=== PATIENT | male | born 1990 | race Caucasian/White ===

== ENCOUNTER 2017-04-20 20:45 | Emergency (ER) | payer OTHER ==
[2017-04-20 20:55] VITALS: BP 135/71
--- NOTE | 2017-04-20 21:24 | UC ---
Lower Extremity/Ankle HPI - HPI Summary HPI Summary: ONE WEEK PAINFUL LUMP BEHIND LEFT KNEE. PAIN RADIATES TO LEFT CALF. HEAVY DAILY SMOKER. RECENT HEEL SURGERY 8MONTHS AGO, HAS BEEN BED RIDDEN SINCE SURGERY. 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 Onset/Duration: Gradual Onset, Lasting Weeks, Worse Since - DAILY Severity Initially: Moderate Severity Currently: Moderate Pain Intensity: 8 Pain Scale Used: 0-10 Numeric Aggravating Factor(s): Standing, Ambulation Able to Bear Weight: Yes - Risk Factors Gout Risk Factors: Negative DVT Risk Factors: Smoking, Recent Period Of Bedrest, Recent Surgery Septic Arthritis Risk Factor: Negative - Allergies/Home Medications Allergies/Adverse Reactions: Allergies Allergy/AdvReac Type Severity Reaction Status Date / Time No Known Allergies Allergy Verified 04/20/17 20:55 Home Medications: Home Medications Ibuprofen TAB* [Advil TAB*] 200 mg PO Q6H PRN 04/20/17 [History Confirmed ] Penicillin VK TAB* [Penicillin VK 250 mg Tab*] 500 mg PO TID 04/20/17 [History Confirmed 04/20/17] PMH/Surg Hx/FS Hx/Imm Hx Previously Healthy: Yes - Surgical History Surgical History: Yes Surgery Procedure, Year, and Place: right heel surgery 2016. hernia repair - Family History Known Family History: Negative: Blood Disorder - Social History Alcohol Use: Occasionally Substance Use Type: None Smoking Status (MU): Heavy Every Day Tobacco Smoker Type: Cigarettes Amount Used/How Often: 1ppd - Immunization History Most Recent Influenza Vaccination: no Review of Systems Constitutional: Negative Skin: Negative Eyes: Negative ENT: Negative Respiratory: Negative Cardiovascular: Negative Gastrointestinal: Negative Genitourinary: Negative Motor: Negative Neurovascular: Negative Musculoskeletal: Arthralgia, Calf Tenderness, Edema - LEFT POPLITIEAL FOSSA, Myalgia Neurological: Negative Psychological: Negative Is Patient Immunocompromised?: No All Other Systems Reviewed And Are Negative: Yes Physical Exam Triage Information Reviewed: Yes Appearance: Well-Appearing, No Pain Distress, Well-Nourished Vital Signs: Initial Vital Signs Temp 98.1 F 04/20/17 20:49 Pulse 76 04/20/17 20:49 Resp 16 04/20/17 20:49 BP 135/71 04/20/17 20:49 Pulse Ox 100 04/20/17 20:49 Vital Signs Reviewed: Yes Eye Exam: Normal ENT Exam: Normal ENT: Positive: Normal ENT inspection, TMs normal Dental Exam: Normal Neck exam: Normal Respiratory Exam: Normal Respiratory: Positive: Chest non-tender, Lungs clear, Normal breath sounds, No respiratory distress, No accessory muscle use Cardiovascular Exam: Normal Cardiovascular: Positive: RRR, No Murmur, Pulses Normal, Brisk Capillary Refill Abdominal Exam: Normal Musculoskeletal: Positive: Strength Intact, ROM Intact, Edema @ - LEFT POPLITEAL FOSSA Neurological Exam: Normal Psychological Exam: Normal Psychological: Positive: Normal Response To Family Skin Exam: Normal Lower Extremity Course/Dx - Differential Dx/Diagnosis Differential Diagnosis/HQI/PQRI: DVT, Fracture (Closed), Sprain, Strain Provider Diagnoses: LEFT LEG PAIN - Physician Notifications Time Discussed With Above Provider: 21:05 - [facility] Instructed by Provider To: MD Will See In ED Discharge - Discharge Plan Condition: Stable Disposition: OTHER Discharge Disposition Comment: ADVISED TO GO TO ED, REFUSED AMBULANCE Patient Education Materials: Leg Pain (ED) Referrals: [facility] PHYSICIAN REFERRAL [Outside] No Primary Care Phys,NOPCP [Medical Doctor] - Additional Instructions: YOU HAVE REFUSED THE OFFER OF AMBULANCE TRANSPORT AND HAVE ELECTED TO GO TO THE EMERGENCY DEPARTMENT BY PRIVATE CAR. YOU ARE ADVISED TO PROCEED SAFELY, BUT DIRECTLY TO THE EMERGENCY DEPARTMENT FOR CONTINUED EVALUATION.
== END 2017-04-20 21:13 ==
LOC: UCCORT 20:45
DX: M25.562 Pain in left knee (principal); F17.210 Nicotine dependence, cigarettes, uncomplicated
CPT/HCPCS: 99212; G0463

== ENCOUNTER 2017-05-31 18:11 | Inpatient (IN) | payer OTHER ==
[2017-05-31 19:47] LABS: Hematocrit 44 % (42-52); Mean Corpuscular HGB Conc 34 g/dl (31-36); Mean Corpuscular Hemoglobin 29 pg (27-31); Mean Corpuscular Volume 85 fL (80-94); Mean Platelet Volume 7 um3 (7.4-10.4); Red Blood Count 5.12 10^6/ul (4.0-5.4); Red Cell Distribution Width 14 % (10.5-15); White Blood Count 7.5 10^3/ul (3.5-10.8)
[2017-05-31 20:03] LABS: ALT 9 U/L (7-52); AST 13 U/L (13-39); Albumin 4.3 g/dL (3.2-5.2); Alkaline Phosphatase 118 U/L (34-104); Anion Gap 6 mmol/L (2-11); BUN/Creatinine Ratio 18.1 (8-20); Blood Urea Nitrogen 17 mg/dL (6-24); CO2 Carbon Dioxide 26 mmol/L (22-32); Calcium 9.1 mg/dL (8.6-10.3); Chloride 107 mmol/L (101-111); EGFR African American 123.8 (>60); EGFR Non-African American 96.3 (>60); Globulin 2.5 g/dL (2-4); Glucose 112 mg/dL (70-100); Potassium 3.7 mmol/L (3.5-5.0); Sodium 139 mmol/L (133-145); Total Protein 6.8 g/dL (6.4-8.9)
[2017-05-31 20:36] LABS: Acetaminophen < 15 mcg/mL; Alcohol < 10 mg/dL (<10); Salicylate < 2.50 mg/dL (<30)
[2017-05-31] MEDS ORDERED: Nicotine Inhaler* 10 MG AMP INH ONE (20:40)
[2017-05-31] MEDS ORDERED: Mouth Piece, Nicotine* 1 EACH CARTRIDGE ONE (20:42)
[2017-05-31] MEDS ORDERED: Nicotine Inhaler* 10 MG AMP ONE (20:42)
[2017-05-31 20:54] LABS: Urine Bacteria Absent (Absent); Urine Bilirubin Negative (Negative); Urine Glucose Negative (Negative); Urine Nitrite Negative (Negative)
[2017-05-31 21:07] LABS: Benzodiazepine Urine Screen None Detected (None Detect)
--- NOTE | 2017-05-31 21:17 | ED ---
Markell Kurtz Alfonso, scribed for Usha Carlson MD on 05/31/17 at 1846 . Psychiatric Complaint - HPI Summary HPI Summary: This patient is a 27 year old M presenting to [facility] accompanied by family with a chief complaint of SI since a few days ago. He states "my family thinks I'm crazy." The patient rates the pain 10/10 in severity. Symptoms aggravated by nothing. Symptoms alleviated by nothing. Patient reports previous suicide attempts, paranoia, and depression. Patient denies a suicide plan. - History Of Current Complaint Chief Complaint: EDMentalHealth Time Seen by Provider: 05/31/17 18:30 Hx Obtained From: Patient Onset/Duration: Gradual Onset, Lasting Days, Still Present Timing: Constant Character: Depressed Aggravating Factor(s): Nothing Alleviating Factor(s): Nothing Associated Signs And Symptoms: Positive: Paranoid Behavior Has Suicidal: Reports: Thoughts, Has Prior Attempt(s). Denies: With A Plan - Allergies/Home Medications Allergies/Adverse Reactions: Allergies Allergy/AdvReac Type Severity Reaction Status Date / Time No Known Allergies Allergy Verified 04/20/17 20:55 PMH/Surg Hx/FS Hx/Imm Hx Opthamlomology History: Denies: Hx Legally Blind EENT History: Denies: Hx Deafness - Surgical History Surgery Procedure, Year, and Place: right heel surgery 2016. hernia repair Infectious Disease History: No Infectious Disease History: Denies: Traveled Outside the [place] in Last 30 Days - Family History Known Family History: Negative: Blood Disorder - Social History Lives: With Family - and homeless Alcohol Use: Occasionally Hx Substance Use: Yes Substance Use Type: Reports: Heroin Smoking Status (MU): Heavy Every Day Tobacco Smoker Type: Cigarettes Amount Used/How Often: 1ppd Review of Systems Neurological: Other - SI, previous SI attempt; negative SI plan Psychological: Other - paranoia Positive: Depressed All Other Systems Reviewed And Are Negative: Yes Physical Exam - Summary Physical Exam Summary: General: Well appearing, no pain distress Skin: Warm, Skin Color Reflects Adequate Perfusion, Dry Eyes: EOMI, RANDY ENT: Pharynx normal, TMs normal Neck: Supple, nontender Respiratory: CTA, breath sounds present, no rhonchi, no wheezes, no rales Cardiovascular: RRR, no murmur, no rub, no gallop Abdomen: Soft, nontender, Non-distended, no guarding, no rebound Bowel: Present Musculoskeletal: MALI, No edema Neuro: Sensory/motor intact, A&Ox3, CN intact 2-12 Psych: Flat affect Triage Information Reviewed: Yes Vital Signs On Initial Exam: Initial Vitals Temp Pulse Resp BP Pulse Ox 97.7 F 83 18 135/89 100 05/31/17 18:18 05/31/17 18:18 05/31/17 18:18 05/31/17 18:18 05/31/17 18:18 Vital Signs Reviewed: Yes Diagnostics - Vital Signs Vital Signs Temp Pulse Resp BP Pulse Ox 05/31/17 18:18 97.7 F 83 18 135/89 100 - Laboratory Lab Results: Lab Results 05/31/17 05/31/17 05/31/17 Range/Units 19:40 19:40 20:29 WBC 7.5 (3.5-10.8) 10^3/ul RBC 5.12 (4.0-5.4) 10^6/ul Hgb 15.0 (14.0-18.0) g/dl Hct 44 (42-52) % MCV 85 (80-94) fL MCH 29 (27-31) pg MCHC 34 (31-36) g/dl RDW 14 (10.5-15) % Plt Count 253 (150-450) 10^3/ul MPV 7 L (7.4-10.4) um3 Neut % (Auto) 73.5 (38-83) % Lymph % (Auto) 15.2 L (25-47) % [place] % (Auto) 9.4 H (1-9) % Eos % (Auto) 0.9 (0-6) % Baso % (Auto) 1.0 (0-2) % Absolute Neuts (auto) 5.5 (1.5-7.7) 10^3/ul Absolute Lymphs (auto) 1.1 (1.0-4.8) 10^3/ul Absolute Monos (auto) 0.7 (0-0.8) 10^3/ul Absolute Eos (auto) 0.1 (0-0.6) 10^3/ul Absolute Basos (auto) 0.1 (0-0.2) 10^3/ul Absolute Nucleated RBC 0 10^3/ul Nucleated RBC % 0 Sodium 139 (133-145) mmol/L Potassium 3.7 (3.5-5.0) mmol/L Chloride 107 (101-111) mmol/L Carbon Dioxide 26 (22-32) mmol/L Anion Gap 6 (2-11) mmol/L BUN 17 (6-24) mg/dL Creatinine 0.94 (0.67-1.17) mg/dL Est GFR ( Amer) 123.8 (>60) Est GFR (Non-Af Amer) 96.3 (>60) BUN/Creatinine Ratio 18.1 (8-20) Glucose 112 H (70-100) mg/dL Calcium 9.1 (8.6-10.3) mg/dL Total Bilirubin 0.90 (0.2-1.0) mg/dL AST 13 (13-39) U/L ALT 9 (7-52) U/L Alkaline Phosphatase 118 H (34-104) U/L Total Protein 6.8 (6.4-8.9) g/dL Albumin 4.3 (3.2-5.2) g/dL Globulin 2.5 (2-4) g/dL Albumin/Globulin Ratio 1.7 (1-3) TSH Pending Urine Color Yellow Urine Appearance Cloudy Urine pH 5.0 (5-9) Ur Specific [place] 1.029 (1.010-1.030) Urine Protein 1+(30 mg/dl) H (Negative) Urine Ketones 1+ H (Negative) Urine Blood Negative (Negative) Urine Nitrate Negative (Negative) Urine Bilirubin Negative (Negative) Urine Urobilinogen Negative (Negative) Ur Leukocyte Esterase Negative (Negative) Urine WBC (Auto) Trace(0-5/hpf) (Absent) Urine RBC (Auto) Absent (Absent) Ur Squamous Epith Cells Present H (Absent) Urine Bacteria Absent (Absent) Urine Glucose Negative (Negative) Salicylates < 2.50 (<30) mg/dL Acetaminophen < 15 mcg/mL Serum Alcohol < 10 (<10) mg/dL Result Diagrams: 05/31/17 19:40 05/31/17 19:40 Lab Statement: Any lab studies that have been ordered have been reviewed, and results considered in the medical decision making process. Course/Dx - Course Course Of Treatment: 27 yo who describes multiple years of feeling depressed and suicidal with poly substance abuse brought in by his mother for evaluation. pt is awaiting mental health eval - Differential Dx/Clinical Impression Provider Diagnosis: Depression Discharge - Discharge Plan Condition: Stable Disposition: OTHER Discharge Disposition Comment: to be determined The documentation as recorded by the Markell keyes Alfonso accurately reflects the service I personally performed and the decisions made by me, Usha Carlson MD.
[2017-05-31 21:20] LABS: TSH (Thyroid Stimulating Horm) 0.37 mcIU/mL (0.34-5.60)
[2017-05-31] MEDS ORDERED: LORazepam TAB(*) 1 MG PO ONE (21:53)
[2017-06-01] MEDS ORDERED: Al Hydrox/Mg Hydrox/Simet LIQ* 30 ML UDC PO PRN (05:03)
[2017-06-01] MEDS ORDERED: Acetaminophen TAB* 325 MG PO PRN (05:03)
[2017-06-01] MEDS ORDERED: Haloperidol TAB* 5 MG PO PRN (05:04)
[2017-06-01] MEDS ORDERED: Mouth Piece, Nicotine* 1 EACH CARTRIDGE INH SCH (05:04)
[2017-06-01] MEDS ORDERED: Nicotine Inhaler* 10 MG AMP INH PRN (05:04)
[2017-06-01] MEDS: Vitamin THERAPEUTIC TAB PO SCH (09:27)
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
[2017-06-01 16:17] LABS: HDL Cholesterol 43.3 mg/dL
[2017-06-01] MEDS ORDERED: Methocarbamol TAB* 500 MG PO ONE (17:19)
[2017-06-01] MEDS ORDERED: cloNIDine TAB* 0.1 MG PO PRN (17:20)
[2017-06-01] MEDS ORDERED: cloNIDine TAB* 0.1 MG PO ONE (17:20)
[2017-06-01] MEDS ORDERED: Ibuprofen TAB* 600 MG PO PRN (17:24)
[2017-06-01] MEDS ORDERED: Ibuprofen TAB* 600 MG PO ONE (17:24)
[2017-06-01] MEDS ORDERED: Loperamide CAP* 2 MG PO PRN (17:25)
[2017-06-01] MEDS ORDERED: Ondansetron TAB* 4 MG PO PRN (17:26)
[2017-06-01] MEDS: cloNIDine TAB* 0.1 MG PO ONE ×3 (18:24→18:33)
[2017-06-02] MEDS: Vitamin THERAPEUTIC TAB PO SCH (08:48)
--- NOTE | 2017-06-02 12:05 | PN ---
Subjective - Subjective Service Type: [id number] Hosp care 15 min low complexity Subjective: Patient continued to spend majority of day in his room. Patient has attended some groups. Patient reports ongoing depressed mood and anxiety. He reports ongoing opioid w/d symptoms including sweats, chills, muscle spasm and body ache. Patient reports continued increased sleep. He reports all depressive symptoms noted on admission continue w/o improvement. Patient informed this provider would start anti-depressant Effexor XR 75mg po qam for depressive symptoms and anxiety. Patient denies SI/HI and AH/VH. Objective - Appearance Appearance: Thin Framed, Other - emaciated Dysmorphic Features: No Hygiene: Dirty Grooming: Disheveled - Behavior Psychomotor Activities: Normal Exhibits Abnormal Movement: No - Attitude and Relatedness Attitude and Relatedness: Cooperative Eye Contact: Fair - Speech Quality: Unpressured Latencies: Normal Quantity: Appropriate - Mood Patient's Decription of Mood: "depressed" - Affect Observed Affect: Depressed Affect Consistent with: Dysphoria - Thought Process Patient's Thought Process: Coherent Thought Content: No Passive Wish, No Suicidal Planning, No Homicidal Ideation, No Paranoid Ideation - Sensorium Experiencing Hallucinations: No, Sensorium is Clear Type of Hallucinations: Visual: No, Auditory: No, Command: No - Level of Consciousness Level of Consciousness: Alert Orientation: Yes Intact, Yes Orientated to Time, Yes Orientated to Place, Yes Orientated to Person - Impulse Control Impulse Control: Impaired - Insight and Judgement Insight and Judgement: Poor - Group Participation Particating in Group Activities: No - Medication Management Medication Management Adherence: Yes Assessment - Assessment Merits Inpatient Hospitalization: For Immediate Safety, For Stabilization Inpatient DSM-IV Dx: ASSESSMENT: . 1. Opioid induced d/o disorder. 2. MDD by Hx. 3. Opioid use d/o, severe. 4. Cannabis use d/o, severe. 5. Methamphetamine use d/o, severe. 6. Cocaine use d/o, severe Plan - Plan Treatment Plan: Name: SALLY SÁNCHEZ Birthdate: 1990 [id number] PLAN: ------ 1. Continue admission to [facility] for safety and symptom mx. 2. Will continue patient on Opioid w/d symptom PRNs: -Methocarbamol 750mg po TID PRN muscles spasm -Clonidine 0.1mg po BID PRN sweats/chills with PARAMETERS ordered -Loperamide 2mg po TID PRN after each loose stools -Ibuprofen 600mg po q6hr PRN pain -Zofran 4mg po BID PRN nausea 3. Patient gives informed consent to start Effexor XR 75mg po qam for anxiety and depressive symptoms. 4. Obtain collateral from family and outpt providers. 5. Patient to participate in milieu activities and groups. Continued Medication Management: Start Medication Medications: Current Medications Acetaminophen (Tylenol Tab*) 650 mg PO Q4H PRN PRN Reason: PAIN or TEMP > 101 F Al Hydrox/Mg Hydrox/Simethicone (Maalox Plus*) 30 ml PO Q4H PRN PRN Reason: INDIGESTION Clonidine HCl (Catapres Tab*) 0.1 mg PO BID PRN PRN Reason: sweats, chills, htn, tachycard Device (Nicotine Mouth Piece*) 1 each INH .[facility] Haloperidol (Haldol Tab*) 5 mg PO Q6H PRN PRN Reason: AGITATION Ibuprofen (Motrin Tab*) 600 mg PO Q6H PRN PRN Reason: PAIN Loperamide HCl (Imodium Cap*) 2 mg PO TID PRN PRN Reason: after each loose stool Lorazepam (Ativan Tab(*)) 2 mg PO Q6H PRN PRN Reason: AGITATION Methocarbamol (Robaxin Tab*) 750 mg PO TID PRN PRN Reason: muscle spasms Multivitamins (Theragran Tab*) 1 tab PO DAILY [facility] Last Admin: 06/02/17 08:48 Dose: Not Given Nicotine (Nicotine Inhaler*) 10 mg INH Q2H PRN PRN Reason: CRAVING Nicotine Polacrilex (Nicotine Gum*) 2 mg PO Q2H PRN PRN Reason: CRAVING Ondansetron HCl (Zofran Tab*) 4 mg PO Q6H PRN PRN Reason: NAUSEA - Discharge Plan Discharge Plan: Drug/Alcohol Rehab [facility]
[2017-06-02] MEDS: Nicotine PATCH 21 MG/24 HR* PATCH TRANSDERM SCH (14:18)
[2017-06-02] MEDS: Nicotine GUM* 2 MG PO PRN ×2 (15:38→17:39)
[2017-06-02] MEDS: LORazepam TAB(*) 1 MG PO PRN (18:37)
[2017-06-02] MEDS: Nicotine Patch Removal NOTE PATCH OFF SCH (21:23)
[2017-06-02] MEDS: Methocarbamol TAB* 500 MG PO PRN (21:25)
[2017-06-03] MEDS: Nicotine PATCH 21 MG/24 HR* PATCH TRANSDERM SCH ×2 (10:37→11:15)
[2017-06-03] MEDS: Vitamin THERAPEUTIC TAB PO SCH (10:38)
[2017-06-03] MEDS: LORazepam TAB(*) 1 MG PO PRN ×2 (11:15→17:44)
[2017-06-03] MEDS: Nicotine GUM* 2 MG PO PRN ×2 (17:44→21:29)
--- NOTE | 2017-06-03 18:34 | PN ---
Subjective - Subjective Service Type: [id number] Hosp care 15 min low complexity Subjective: Jamar was agitated and irritable because of his mother not bringing his 9 y/o daughter for the second time. However participated in assessment and say he was diagnosed with Schizophrenia, ADHD, Bipolar and Borderline by 2 psychiatrists and everybody thinks he has drug problems. He just relapsed due to stress of life. Denies SI/HI, hallucinations or delusions. Tense and aloof. Objective - Appearance Appearance: Thin Framed Dysmorphic Features: No Hygiene: Dirty Grooming: Disheveled - Behavior Psychomotor Activities: Abnormal-Increased Exhibits Abnormal Movement: No - Attitude and Relatedness Attitude and Relatedness: Irritable Eye Contact: Poor - Speech Quality: Pressured Latencies: Short Quantity: Terse - Mood Patient's Decription of Mood: "Angry" - Affect Observed Affect: Tense - Thought Process Patient's Thought Process: Coherent, Goal Directed Thought Content: No Passive Wish, No Suicidal Planning, No Homicidal Ideation, No Paranoid Ideation - Sensorium Experiencing Hallucinations: No, Sensorium is Clear Type of Hallucinations: Visual: No, Auditory: No, Command: No - Level of Consciousness Level of Consciousness: Alert Orientation: Yes Intact, Yes Orientated to Time, Yes Orientated to Place, Yes Orientated to Person - Impulse Control Impulse Control: Poor - Insight and Judgement Insight and Judgement: Impaired - Group Participation Particating in Group Activities: No - Medication Management Medication Management Adherence: Yes Assessment - Assessment Merits Inpatient Hospitalization: For Immediate Safety, For Stabilization, For Discharge Planning Inpatient DSM-IV Dx: ASSESSMENT: . 1. Opioid induced d/o disorder. 2. MDD by Hx. 3. Opioid use d/o, severe. 4. Cannabis use d/o, severe. 5. Methamphetamine use d/o, severe. 6. Cocaine use d/o, severe Clinical Impression: Edgy, tense and irritable. In complete denial about his drug problems. Plan - Plan Treatment Plan: Name: JAMAR SÁNCHEZ Birthdate: 1990 [id number] Continued Medication Management: Continue Outpt Medication Medications: Current Medications Acetaminophen (Tylenol Tab*) 650 mg PO Q4H PRN PRN Reason: PAIN or TEMP > 101 F Al Hydrox/Mg Hydrox/Simethicone (Maalox Plus*) 30 ml PO Q4H PRN PRN Reason: INDIGESTION Clonidine HCl (Catapres Tab*) 0.1 mg PO BID PRN PRN Reason: sweats, chills, htn, tachycard Device (Nicotine Mouth Piece*) 1 each INH .[facility] Haloperidol (Haldol Tab*) 5 mg PO Q6H PRN PRN Reason: AGITATION Ibuprofen (Motrin Tab*) 600 mg PO Q6H PRN PRN Reason: PAIN Loperamide HCl (Imodium Cap*) 2 mg PO TID PRN PRN Reason: after each loose stool Lorazepam (Ativan Tab(*)) 2 mg PO Q6H PRN PRN Reason: AGITATION Last Admin: 06/03/17 17:44 Dose: 2 mg Methocarbamol (Robaxin Tab*) 750 mg PO TID PRN PRN Reason: muscle spasms Last Admin: 06/02/17 21:25 Dose: 750 mg Multivitamins (Theragran Tab*) 1 tab PO DAILY [facility] Last Admin: 06/03/17 10:38 Dose: Not Given Nicotine (Nicotine Inhaler*) 10 mg INH Q2H PRN PRN Reason: CRAVING Nicotine (Nicotine Patch 21 Mg/24 Hr*) 1 patch TRANSDERM DAILY [facility] Last Admin: 06/03/17 11:15 Dose: 1 patch Nicotine Polacrilex (Nicotine Gum*) 2 mg PO Q2H PRN PRN Reason: CRAVING Last Admin: 06/03/17 17:44 Dose: 2 mg Ondansetron HCl (Zofran Tab*) 4 mg PO Q6H PRN PRN Reason: NAUSEA Pharmacy Profile Note (Nicotine Patch Removal Note*) 1 note PATCH OFF 2099 [facility] Last Admin: 06/02/17 21:23 Dose: 1 note Venlafaxine HCl (Effexor Xr Cap*) 75 mg PO DAILY [facility] - Discharge Plan Discharge Plan: Drug/Alcohol Rehab
[2017-06-03] MEDS: Nicotine Patch Removal NOTE PATCH OFF SCH (21:25)
[2017-06-03] MEDS: Methocarbamol TAB* 500 MG PO PRN (21:27)
[2017-06-04] MEDS: Nicotine PATCH 21 MG/24 HR* PATCH TRANSDERM SCH (10:58)
[2017-06-04] MEDS: Vitamin THERAPEUTIC TAB PO SCH (10:58)
[2017-06-04] MEDS: Venlafaxine EXT RELEASE CAP* 75 MG PO SCH (10:58)
[2017-06-04] MEDS: LORazepam TAB(*) 1 MG PO PRN ×2 (10:58→19:07)
[2017-06-04] MEDS: Nicotine GUM* 2 MG PO PRN ×5 (11:15→22:13)
[2017-06-04] MEDS: Methocarbamol TAB* 500 MG PO PRN (22:08)
[2017-06-04] MEDS: Nicotine Patch Removal NOTE PATCH OFF SCH (22:11)
[2017-06-05] MEDS: Venlafaxine EXT RELEASE CAP* 75 MG PO SCH (10:58)
[2017-06-05] MEDS: Nicotine PATCH 21 MG/24 HR* PATCH TRANSDERM SCH (10:58)
[2017-06-05] MEDS: Vitamin THERAPEUTIC TAB PO SCH (10:58)
[2017-06-05] MEDS: LORazepam TAB(*) 1 MG PO PRN ×2 (11:00→18:42)
[2017-06-05] MEDS: Nicotine GUM* 2 MG PO PRN ×2 (12:23→21:04)
--- NOTE | 2017-06-05 15:17 | PN ---
Subjective - Subjective Service Type: [id number] [facility] Subjective: Patient was met for the first time as his case was taken over by this observer from Dr. Simms, who is off service. Jamar is paranoid, stating that he no longer feels safe here. He reports that an unknown female has been calling the unit and gathering information about him by pretending to be his mother. Later , we had a family meeting, attended by his mother, Nelsy Gregorio, who has custody of his 9 y.o. daughter. She reports that Jamar has been diagnosed with schizophrenia in the past and she thinks part of his drug problem is an attempt to self-medicate. She also reports that his daughter's mother, his ex- girlfriend, is an extremely bad influence. Jamar is no longer interested in going to substance abuse rehab, at least on immediately. He is asking for discharge, "So I can go have a cigarette." He denies SI or HI. Objective - Appearance Appearance: Well Developed/Nourished Dysmorphic Features: No Hygiene: Normal Grooming: Fairly Well Kept - Behavior Psychomotor Activities: Normal Exhibits Abnormal Movement: No - Attitude and Relatedness Attitude and Relatedness: Guarded Eye Contact: Fair - Speech Quality: Unpressured Latencies: Normal Quantity: Appropriate - Mood Patient's Decription of Mood: "Irritable" - Affect Observed Affect: Tense Affect Consistent with: Dysphoria - Thought Process Patient's Thought Process: Coherent Thought Content: Yes Paranoid Ideation, No Passive Wish, No Suicidal Planning, No Homicidal Ideation - Sensorium Experiencing Hallucinations: No, Sensorium is Clear Type of Hallucinations: Visual: No, Auditory: No, Command: No - Level of Consciousness Level of Consciousness: Alert Orientation: Yes Intact, Yes Orientated to Time, Yes Orientated to Place, Yes Orientated to Person - Impulse Control Impulse Control: Poor - Insight and Judgement Insight and Judgement: Impaired - Group Participation Particating in Group Activities: Yes - Medication Management Medication Management Adherence: Yes Assessment - Assessment Merits Inpatient Hospitalization: For Immediate Safety, For Stabilization Inpatient DSM-IV Dx: ASSESSMENT: . 1. Opioid induced d/o disorder. 2. MDD by Hx. 3. Opioid use d/o, severe. 4. Cannabis use d/o, severe. 5. Methamphetamine use d/o, severe. 6. Cocaine use d/o, severe Clinical Impression: 27 y.o. single, white male with a history of schizophrenia, and polysubstance dependence (opioids, cocaine, amphetamines and cannabis) brought in due to bizarre behaviors in the context of undertreated psychosis and active substance misuse. Plan - Plan Treatment Plan: Name: JAMAR SÁNCHEZ Birthdate: 1990 [id number] Patient on clonidine taper for opioid withdrawal. Also on venlafaxine XR 75mg PO qday. Will start risperidone 1mg PO qhs. Encourage substance abuse treatment referral. Mother agreeable with treatment plan. Continue inpatient care. Continued Medication Management: Start Medication Medications: Current Medications Acetaminophen (Tylenol Tab*) 650 mg PO Q4H PRN PRN Reason: PAIN or TEMP > 101 F Al Hydrox/Mg Hydrox/Simethicone (Maalox Plus*) 30 ml PO Q4H PRN PRN Reason: INDIGESTION Clonidine HCl (Catapres Tab*) 0.1 mg PO BID PRN PRN Reason: sweats, chills, htn, tachycard Device (Nicotine Mouth Piece*) 1 each INH .[facility] Haloperidol (Haldol Tab*) 5 mg PO Q6H PRN PRN Reason: AGITATION Ibuprofen (Motrin Tab*) 600 mg PO Q6H PRN PRN Reason: PAIN Loperamide HCl (Imodium Cap*) 2 mg PO TID PRN PRN Reason: after each loose stool Lorazepam (Ativan Tab(*)) 2 mg PO Q6H PRN PRN Reason: AGITATION Last Admin: 06/05/17 11:00 Dose: 2 mg Methocarbamol (Robaxin Tab*) 750 mg PO TID PRN PRN Reason: muscle spasms Last Admin: 06/04/17 22:08 Dose: 750 mg Multivitamins (Theragran Tab*) 1 tab PO DAILY [facility] Last Admin: 06/05/17 10:58 Dose: 1 tab Nicotine (Nicotine Inhaler*) 10 mg INH Q2H PRN PRN Reason: CRAVING Nicotine (Nicotine Patch 21 Mg/24 Hr*) 1 patch TRANSDERM DAILY [facility] Last Admin: 06/05/17 10:58 Dose: 1 patch Nicotine Polacrilex (Nicotine Gum*) 2 mg PO Q2H PRN PRN Reason: CRAVING Last Admin: 06/05/17 12:23 Dose: 2 mg Ondansetron HCl (Zofran Tab*) 4 mg PO Q6H PRN PRN Reason: NAUSEA Pharmacy Profile Note (Nicotine Patch Removal Note*) 1 note PATCH OFF 2100 [facility] Last Admin: 06/04/17 22:11 Dose: 1 note Risperidone (Risperdal*) 1 mg PO BEDTIME [facility] Venlafaxine HCl (Effexor Xr Cap*) 75 mg PO DAILY [facility] Last Admin: 06/05/17 10:58 Dose: 75 mg - Discharge Plan Discharge Plan: Drug/Alcohol Rehab
[2017-06-05] MEDS ORDERED: risperiDONE TAB* 1 MG PO SCH (21:00)
[2017-06-05] MEDS: Nicotine Patch Removal NOTE PATCH OFF SCH (21:04)
[2017-06-05] MEDS: Methocarbamol TAB* 500 MG PO PRN (21:05)
[2017-06-06 09:14] LABS: HDL Cholesterol 34.6 mg/dL
[2017-06-06] MEDS: Nicotine PATCH 21 MG/24 HR* PATCH TRANSDERM SCH (10:46)
[2017-06-06] MEDS: Venlafaxine EXT RELEASE CAP* 75 MG PO SCH (10:46)
[2017-06-06] MEDS: Vitamin THERAPEUTIC TAB PO SCH (10:46)
[2017-06-06] MEDS: LORazepam TAB(*) 1 MG PO PRN ×2 (10:47→17:54)
--- NOTE | 2017-06-06 12:50 | PN ---
Subjective - Subjective Service Type: [id number] Hosp care 15 min low complexity Subjective: Patient is in bed, sleeping through group. Requests discharge to home. Reports good tolerance of low dose risperidone. Patient's MMPI was strongly correlated with paranoia. Patient denies SI, HI, AH or VH. Still refusing inpatient substance abuse treatment. Objective - Appearance Appearance: Well Developed/Nourished Dysmorphic Features: No Hygiene: Normal Grooming: Fairly Well Kept - Behavior Psychomotor Activities: Normal Exhibits Abnormal Movement: No - Attitude and Relatedness Attitude and Relatedness: Cooperative Eye Contact: Fair - Speech Quality: Unpressured Latencies: Normal Quantity: Appropriate - Mood Patient's Decription of Mood: "Fine" - Affect Observed Affect: Fair Affect Consistent with: Euthymia - Thought Process Patient's Thought Process: Coherent Thought Content: Yes Paranoid Ideation, No Passive Wish, No Suicidal Planning, No Homicidal Ideation - Sensorium Experiencing Hallucinations: No, Sensorium is Clear Type of Hallucinations: Visual: No, Auditory: No, Command: No - Level of Consciousness Level of Consciousness: Alert Orientation: Yes Intact, Yes Orientated to Time, Yes Orientated to Place, Yes Orientated to Person - Impulse Control Impulse Control: Tenuous - Insight and Judgement Insight and Judgement: Fair - Group Participation Particating in Group Activities: No - Medication Management Medication Management Adherence: Yes Assessment - Assessment Merits Inpatient Hospitalization: Consolidate Improvements, Pending Safe DC Plan Inpatient DSM-IV Dx: Schizophrenia Clinical Impression: 27 y.o. single, white male with a history of schizophrenia, and polysubstance dependence (opioids, cocaine, amphetamines and cannabis) brought in due to bizarre behaviors in the context of undertreated psychosis and active substance misuse. Plan - Plan Treatment Plan: Name: SALLY SÁNCHEZ Birthdate: 1990 [id number] Despite the patient continued abstinence from drugs, while admitted here, he continues to display clear evidence of paranoia. His mother indicates he has historically carried a diagnosis of schizophrenia and I believe this is appropriate. He tolerated risperidone initiation well and we'll increase the dose from 1 to 2mg PO qhs. Patient on clonidine taper for opioid withdrawal. Also on venlafaxine XR 75mg PO qday. Encourage substance abuse treatment referral. Mother agreeable with treatment plan. Possible d/c to home tomorrow if he continues to decline rehab transfer. Continued Medication Management: Start Medication Medications: Current Medications Acetaminophen (Tylenol Tab*) 650 mg PO Q4H PRN PRN Reason: PAIN or TEMP > 101 F Al Hydrox/Mg Hydrox/Simethicone (Maalox Plus*) 30 ml PO Q4H PRN PRN Reason: INDIGESTION Clonidine HCl (Catapres Tab*) 0.1 mg PO BID PRN PRN Reason: sweats, chills, htn, tachycard Device (Nicotine Mouth Piece*) 1 each INH .[facility] Haloperidol (Haldol Tab*) 5 mg PO Q6H PRN PRN Reason: AGITATION Ibuprofen (Motrin Tab*) 600 mg PO Q6H PRN PRN Reason: PAIN Loperamide HCl (Imodium Cap*) 2 mg PO TID PRN PRN Reason: after each loose stool Lorazepam (Ativan Tab(*)) 2 mg PO Q6H PRN PRN Reason: AGITATION Last Admin: 06/06/17 10:47 Dose: 2 mg Methocarbamol (Robaxin Tab*) 750 mg PO TID PRN PRN Reason: muscle spasms Last Admin: 06/05/17 21:05 Dose: 750 mg Multivitamins (Theragran Tab*) 1 tab PO DAILY [facility] Last Admin: 06/06/17 10:46 Dose: 1 tab Nicotine (Nicotine Inhaler*) 10 mg INH Q2H PRN PRN Reason: CRAVING Nicotine (Nicotine Patch 21 Mg/24 Hr*) 1 patch TRANSDERM DAILY [facility] Last Admin: 06/06/17 10:46 Dose: 1 patch Nicotine Polacrilex (Nicotine Gum*) 2 mg PO Q2H PRN PRN Reason: CRAVING Last Admin: 06/05/17 21:04 Dose: 2 mg Ondansetron HCl (Zofran Tab*) 4 mg PO Q6H PRN PRN Reason: NAUSEA Pharmacy Profile Note (Nicotine Patch Removal Note*) 1 note PATCH OFF 2100 [facility] Last Admin: 06/05/17 21:04 Dose: 1 note Risperidone (Risperdal*) 2 mg PO BEDTIME [facility] Venlafaxine HCl (Effexor Xr Cap*) 75 mg PO DAILY [facility] Last Admin: 06/06/17 10:46 Dose: 75 mg - Discharge Plan Discharge Plan: Drug/Alcohol Rehab Lab Results - Lab Results Lab Results: 06/06/17 06/06/17 08:11 08:14 Hemoglobin A1c 5.0 Triglycerides 74 Cholesterol 76 LDL Cholesterol 27 HDL Cholesterol 34.6
[2017-06-06] MEDS: Nicotine GUM* 2 MG PO PRN ×2 (14:09→17:54)
[2017-06-06] MEDS: Methocarbamol TAB* 500 MG PO PRN (20:30)
[2017-06-06] MEDS: Nicotine Patch Removal NOTE PATCH OFF SCH (20:33)
[2017-06-06] MEDS ORDERED: risperiDONE TAB* 1 MG PO SCH (21:00)
[2017-06-07 08:38] VITALS: BP 116/72
[2017-06-07] MEDS: Vitamin THERAPEUTIC TAB PO SCH (10:07)
[2017-06-07] MEDS: Venlafaxine EXT RELEASE CAP* 75 MG PO SCH (10:07)
[2017-06-07] MEDS: LORazepam TAB(*) 1 MG PO PRN (10:09)
[2017-06-07] MEDS: Nicotine PATCH 21 MG/24 HR* PATCH TRANSDERM SCH (10:09)
[2017-06-07] MEDS: Methocarbamol TAB* 500 MG PO PRN (10:10)
[2017-06-07] MEDS: Nicotine GUM* 2 MG PO PRN (10:10)
--- NOTE | 2017-06-07 12:26 | DS ---
DATE OF ADMISSION: 06/01/2017. DATE OF DISCHARGE: 06/07/2017. DISCHARGE DIAGNOSES: AXIS I: Schizophrenia; opioid-induced mood disorder; opioid use disorder; cannabis use disorder; me thamphetamine use disorder; cocaine use disorder. AXIS II: Deferred. AXIS III: History of right heel surgery in 2016. AXIS IV: Severe, primary support and financial stressors. AXIS V: At the time of admission was 35 and at the time of discharge is 60. CONDITION AT THE TIME OF DISCHARGE: Improved. The patient has been safe on all checks. He has bee n denying suicidal or homicidal ideations. His behavior has been calm and cooperative. He interact s well with both staff and peers and he has been active in the milieu setting. He has been observed going to groups. Furthermore, we have had a therapeutic family meeting with his mother in which she has expressed agreement with the discharge plan. The patient is motivated to get sober and to foll ow through with his mental health treatment, both in the community. The patient steadfastly denies any thoughts of harming himself or others and we feel that discharge to a less restrictive level of treatment is warranted at this time. MENTAL STATUS EXAM: The patient is a young, white male with short brown hair who is clean and well- groomed. He is wearing a allen hooded sweatshirt. He is calm, cooperative, and expressive. Speech has normal rate, tone and volume. Mood is euthymic with a full affect. Thought process is linear a nd goal-directed. Thought content is significant for his desire to be discharged from the hospital. He denied suicidal or homicidal ideations. He denies auditory or visual hallucinations. Insight and judgment are fair given his willingness to follow-up with both substance abuse and mental health treatment in the community. Cognitively, he is awake and alert with what would appear to be an aver age intellect. DISCHARGE INSTRUCTIONS TO THE PATIENT: A. Medications: He is taking Effexor XR 75 mg p.o. daily, he is taking Risperidone 2 mg p.o. at [facility]. B. Diet: Regular. C. Activities: As tolerated. The patient is declining the continuation of nicotine replacement th era, indicating his preference to continue smoking cigarettes in the community for now. There are no laboratory or diagnostic studies pending at the time of discharge. D. Follow-up care: The patient will have his intake at the [facility] one week of discharge. He is also receiving outpatient substance abuse treatment at the [facility] in [place], [place]. Both appointments are within one week of dischar ge. HOSPITAL COURSE - PART A: Reason for admission: The patient is a 27-year-old, single white male with a history of schizophren ia as well as polysubstance dependence with use of opioids, cannabis, methamphetamines and cocaine w polo presented to the emergency room having been brought in by his mother due to worsening symptoms of depression and recent bizarre behaviors, as well as auditory and visual hallucinations and paranoia ever since relapsing on drugs two months ago. The patient states that prior to relapsing on drugs in March of this year, he had approximately one year of clean time. He does deny alcohol abuse and last alcohol use was seven years ago. He is endorsing ramped use of IV opioids and IV cocaine, met hamphetamine and cannabis. He reports that he was taking Suboxone treatment from [facility] until approximately one month ago when he ran out. In terms of stressors, he indicates that he recently l ost his apartment due to inability to pay rent. He does have custody of his 9-year-old daughter who had been living with him, although she has been taken in by his mother due to their situation with homelessness. He is reporting that he cannot work secondary to a shattered heel secondary to jumpin g off his mother's roof some time in 2016. According to his mother, he has a very problematic relat ionship with the mother of his 9-year-old daughter. They officially broke up two weeks ago and ever since then the patient had been wandering the streets of [place], peering into people's windows, t elling people that he was looking for his ex-girlfriend. He also admits to auditory hallucinations which are apparently his ex-girlfriend's voice. His initial presentation was that of a depressed af fect and an emaciated appearance. He reported 10/10 depression, decreased sleep, poor energy, lack of motivation, no appetite. He also endorsed anhedonia and intense paranoia, reporting that he feel s "everyone is talking about me." HOSPITAL COURSE - PART B: Psychiatric treatment rendered: The patient was admitted to the [facility] Unit where he was placed on q.15 minute checks for his own safety. Initially, he was under the service of Dr. Svetlana Simms who started him on a trial of Effexor XR 75 mg daily, which the patient tolerated well . His treatment was transferred to the care of Dr. Frank Vu on the 05 of June. At that time, he continued to endorse paranoid thinking despite being several days clean from drugs of abuse . We started him initially on a trial of Risperidone 1 mg nightly and since he tolerated this well and got some relief from it, we were able to safely move to the 2 mg nightly dose. Along with milie u treatments and group programming, the medications helped him refocus his thoughts, his suicidal id eations, resolved as did his paranoia and his auditory hallucinations. He was calm and cooperative in group settings. Initially he had expressed an interest in inpatient rehab, although as the hospi talization continued he reported that this would not be the best use of his time because he felt con fident that he could maintain sobriety with more conservative outpatient therapy. At the time of [place], he is being referred to the [facility] as well as the [facility] in [facility]. He is denying any thoughts of self-harm and we feel that there would be limited utility in further inpatient treatment. [id number]/[facility] #: [id number]
== END 2017-06-07 11:30 | disposition home or self-care (01) | DRG 750 ==
LOC: ED 18:11 → BSU 06-01 05:33
PROVIDERS: ADMIT Psychiatry & Neurology Psychiatry; ATTEND Psychiatry & Neurology Psychiatry
DX: F20.9 Schizophrenia, unspecified (principal); F22 Delusional disorders; F11.94 Opioid use, unspecified with opioid-induced mood disorder; F12.90 Cannabis use, unspecified, uncomplicated; F15.90 Other stimulant use, unspecified, uncomplicated; F14.90 Cocaine use, unspecified, uncomplicated; F17.210 Nicotine dependence, cigarettes, uncomplicated; R45.84 Anhedonia; F32.9 Major depressive disorder, single episode, unspecified; Z81.8 Family history of other mental and behavioral disorders; Z56.0 Unemployment, unspecified; Z59.0 Homelessness
CPT/HCPCS: 36415; 80053; 80061; 80307; 80320; 80329; 81003; 81015; 83036; 84443; 85025; 90847; 99222; 99231; 99238; A9270-GY; G0480

== ENCOUNTER 2017-07-15 13:42 | Emergency (ER) | payer OTHER ==
[2017-07-15 13:52] VITALS: BP 122/73
--- NOTE | 2017-07-15 14:23 | UC ---
General HPI - HPI Summary HPI Summary: HAD BEEN ADMITTED TO [facility]. ON DISCHARGE WAS PRESCRIBED EFFEXOR AND RISPERDOL. HAS PSYCHIATRIC APPOINTMENT SCHEDULED WITH ZANA BORJAS FOR 07/20/17. STILL HAS RISPERIDOL, RAN OUT OF EFFEXOR. LAST DOSE TWO DAYS AGO. ATTEMPTED TO CALL PRIMARY CARE PROVIDER YESTERDAY, NO RETURN CALL. - History of Current Complaint Chief Complaint: UCMedRefill Stated Complaint: MED REFILL AXIETY Time Seen by Provider: 07/15/17 13:55 Hx Obtained From: Patient Onset/Duration: Gradual Onset, Lasting Days Onset Severity: Mild Current Severity: Mild Associated Signs & Symptoms: Negative: Agitation, Confusion, Cough, Chest Pain, Decreased Responsiveness, Diarrhea, Fever, Vomiting, Weakness - Allergy/Home Medications Allergies/Adverse Reactions: Allergies Allergy/AdvReac Type Severity Reaction Status Date / Time No Known Allergies Allergy Verified 07/15/17 13:51 PMH/Surg Hx/FS Hx/Imm Hx Previously Healthy: Yes - Surgical History Surgical History: Yes Surgery Procedure, Year, and Place: right heel surgery 2016. hernia repair - Family History Known Family History: Negative: Blood Disorder - Social History Occupation: Disabled Lives: With Family Alcohol Use: None Substance Use Type: Marijuana Substance Use Comment - Amount & Last Used: using meth recently Smoking Status (MU): Heavy Every Day Tobacco Smoker Type: Cigarettes Amount Used/How Often: 1ppd Cessation Counseling: Patient Advised to Stop - Immunization History Most Recent Influenza Vaccination: no Most Recent Pneumonia Vaccination: Unknown Review of Systems Constitutional: Negative Skin: Negative Eyes: Negative ENT: Negative Respiratory: Negative Cardiovascular: Negative Gastrointestinal: Negative Genitourinary: Negative Motor: Negative Neurovascular: Negative Musculoskeletal: Negative Neurological: Negative Psychological: Anxious, Depressed Is Patient Immunocompromised?: No All Other Systems Reviewed And Are Negative: Yes Physical Exam Triage Information Reviewed: Yes Appearance: Well-Appearing, No Pain Distress, Well-Nourished Vital Signs: Initial Vital Signs Temp 98.4 F 07/15/17 13:47 Pulse 92 07/15/17 13:47 Resp 16 07/15/17 13:47 BP 122/73 07/15/17 13:47 Pulse Ox 98 07/15/17 13:47 Vital Signs Reviewed: Yes Eye Exam: Normal ENT Exam: Normal ENT: Positive: Normal ENT inspection, Hearing grossly normal, Pharynx normal Dental Exam: Normal Neck exam: Normal Neck: Positive: Supple, Nontender, No Lymphadenopathy Respiratory Exam: Normal Respiratory: Positive: Chest non-tender, Lungs clear, Normal breath sounds, No respiratory distress, No accessory muscle use Cardiovascular Exam: Normal Cardiovascular: Positive: RRR, No Murmur, Pulses Normal, Brisk Capillary Refill Abdominal Exam: Normal Abdomen Description: Positive: Nontender, No Organomegaly Musculoskeletal Exam: Normal Musculoskeletal: Positive: Strength Intact, ROM Intact Neurological Exam: Normal Neurological: Positive: Alert, Muscle Tone Normal, Other: - CN 2-12 INTACT Psychological Exam: Normal Skin Exam: Normal Course/Dx - Differential Dx - Multi-Symptom Differential Diagnoses: Metabolic Abnormality, Sepsis Provider Diagnoses: ANXIETY/DEPRESSION; MEDICATION REFILL. Discharge - Discharge Plan Condition: Stable Disposition: HOME Prescriptions: Venlafaxine EXT RELEASE CAP* [Effexor Xr CAP*] 75 mg PO DAILY #4 cap.sr Patient Education Materials: Depression (ED), Anxiety (ED) Referrals: Anabelle Simms MD [Primary Care Provider] - Additional Instructions: PLEASE KEEP YOUR APPOINTMENT FOR 07/20/17. MAKE SURE TO TALK ABOUT YOUR NEEDS FOR MEDICATION REFILLS. KEEP YOUR PRIMARY CARE PROVIDER INFORMED WELL.
== END 2017-07-15 14:22 | disposition home or self-care (01) ==
LOC: UCCORT 13:42
DX: F41.9 Anxiety disorder, unspecified (principal); F32.9 Major depressive disorder, single episode, unspecified; Z76.0 Encounter for issue of repeat prescription; F17.210 Nicotine dependence, cigarettes, uncomplicated
CPT/HCPCS: 99212; G0463

== ENCOUNTER 2019-04-20 17:30 | Emergency (ER) | payer OTHER ==
--- NOTE | 2019-04-20 18:05 | ED ---
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 Patient reports black scabs and white blotches on both his arms. Patient states he thinks he injected MDMA but states it could have been meth. Patient states that after injecting, he immediately felt burning in both arms and became diaphoretic. The patient rates the pain 4/10 in severity. Symptoms aggravated by nothing. Symptoms alleviated by nothing. Patient states he recently finished a 7-day course of Keflex that he started on 04/09/19 for an infection he got from injecting IV drugs. Patient states that he is having similar symptoms this time. Patient states he uses the same needle to inject IV drugs. - History of Current Complaint Chief Complaint: EDMedicationRefill Stated Complaint: GENERAL PER PT Time Seen by Provider: 04/20/19 17:54 Hx Obtained From: Patient Mechanism Of Injury: Other - injecting IV MDMA Onset/Duration: Started Hours Ago, Still Present Timing: Constant Severity Currently: Mild Pain Location: Arm - bilateral Aggravating Factor(s): Nothing Alleviating Factor(s): Nothing Associated Signs & Symptoms: Positive: Other - black scabs and white blotches on bilateral arms - Allergies/Home Medications Allergies/Adverse Reactions: Allergies Allergy/AdvReac Type Severity Reaction Status Date / Time No Known Allergies Allergy Verified 04/20/19 17:37 PMH/Surg Hx/FS Hx/Imm Hx Sensory History: Reports: Hx Contacts or Glasses Denies: Hx Legally Blind, Hx Deafness, Hx Hearing Aid Opthamlomology History: Reports: Hx Contacts or Glasses Denies: Hx Legally Blind Psychiatric History: Reports: Hx Schizophrenia - per patient, Hx Substance Abuse - Surgical History Surgery Procedure, Year, and Place: right heel surgery 2016. hernia repair Infectious Disease History: No Infectious Disease History: Denies: Traveled Outside the [place] in Last 30 Days - Family History Known Family History: Negative: Blood Disorder - Social History Alcohol Use: None Hx Substance Use: Yes Substance Use Type: Reports: Marijuana Substance Use Comment - Amount & Last Used: injected meth recently Hx Tobacco Use: Yes Smoking Status (MU): Heavy Every Day Tobacco Smoker Type: Cigarettes Amount Used/How Often: 1ppd Review of Systems Positive: Other - bilateral arm pain and bilateral arm swelling Positive: Other - black scabs and white blotches on bilateral arms All Other Systems Reviewed And Are Negative: Yes Physical Exam - Summary Physical Exam Summary: Appearance: The patient is well-nourished in no acute distress and in no acute pain. Skin: The skin is warm and dry, and skin color reflects adequate perfusion. The patient has multiple injection sites on the right forearm more than left forearm that look clean. HEENT: The head is normocephalic and atraumatic. The pupils are equal and reactive. The conjunctivae are clear and without drainage. Nares are patent and without drainage. Mouth reveals moist mucous membranes, and the throat is without erythema and exudate. The external ears are intact. The ear canals are patent and without drainage. The tympanic membranes are intact. Neck: The neck is supple with full range of motion and non-tender. There are no carotid bruits. There is no neck vein distension. Respiratory: Chest is non-tender. Lungs are clear to auscultation and breath sounds are symmetrical and equal. Cardiovascular: Heart is regular rate and rhythm. There is no murmur or rub auscultated. There is no peripheral edema and pulses are symmetrical and equal. Abdomen: The abdomen is soft and non-tender. There are normal bowel sounds heard in all four quadrants and there is no organomegaly palpated. Musculoskeletal: There is no back tenderness noted. Extremities are non-tender with full range of motion. He has distal pulses and good capillary refill. There is no peripheral edema or calf tenderness elicited. Neurological: Patient is alert and oriented to person, place and time. The patient has symmetrical motor strength in all four extremities. Cranial nerves are grossly intact. Deep tendon reflexes are symmetrical and equal in all four extremities. Psychiatric: The patient has an appropriate affect and does not exhibit any anxiety or depression Triage Information Reviewed: Yes Vital Signs On Initial Exam: Initial Vitals Temp Pulse Resp BP Pulse Ox 98.8 F 82 14 92/63 95 04/20/19 17:33 04/20/19 17:33 04/20/19 17:33 04/20/19 17:33 04/20/19 17:33 Vital Signs Reviewed: Yes Diagnostics - Vital Signs Vital Signs Temp Pulse Resp BP Pulse Ox 04/20/19 17:33 98.8 F 82 14 92/63 95 - Laboratory Lab Statement: Any lab studies that have been ordered have been reviewed, and results considered in the medical decision making process. Course/Dx - Course Course Of Treatment: Mr Beach was complaining of bilateral arm pain and spots on his arms which was the same symptoms that he had when he was recently treated with Keflex creating complete resolution of the symptoms. He is requesting Keflex again. He uses injectable drugs and thought he was injecting Mollie but believes now that it was [place]. He denies ever injecting Suboxone. He has clear injection harper on his bilateral forearms the right worse than the left. They do not look infected to me and he has good distal neurovascular motor. On questioning he refuses needles and I recommended to him that he began to frequent the needle exchange at [facility]. I don't think there is anything acute going on but I am worried that he use the dirty needles and Keflex helped him in the past so I will refill it . - Diagnoses Provider Diagnoses: IV drug user Discharge ED - Sign-Out/Discharge Documenting (check all that apply): Patient Departure - Discharge Patient Received Moderate/Deep Sedation with Procedure: No - Discharge Plan Condition: Stable Disposition: HOME Prescriptions: Cephalexin CAP* [Keflex 500 CAP*] 500 mg PO TID #10 cap Patient Education Materials: Methamphetamine Abuse (ED) Referrals: [facility] [Outside] - 2 Days Additional Instructions: Follow up with [facility] in the next 2-3 days. Return to the Emergency Department for new or worsening symptoms. - Billing Disposition and Condition Condition: STABLE Disposition: Home - Attestation Statements Document Initiated by Robertae: Yes Documenting Scribe: Rema Bearden Provider For Whom Paul is Documenting (Include Credential): Bill Montesinos MD Scribe Attestation: Rema Kurtz, scribed for Bill Montesinos MD on 04/20/19 at 2041. Scribe Documentation Reviewed: Yes Provider Attestation: The documentation as recorded by the Rema keyes accurately reflects the service I personally performed and the decisions made by , Bill Montesinos MD Status of Scribe Document: Viewed
[2019-04-20 18:41] VITALS: BP 118/83
== END 2019-04-20 18:40 | disposition home or self-care (01) ==
LOC: ED 17:30
DX: F19.90 Other psychoactive substance use, unspecified, uncomplicated (principal); F20.9 Schizophrenia, unspecified; F17.210 Nicotine dependence, cigarettes, uncomplicated
CPT/HCPCS: 99281